=== PATIENT | female | born 1985 | race Caucasian/White ===

== ENCOUNTER 2016-09-15 18:05 | Emergency (ER) | payer MEDICAID ==
[2010-04-02 07:28] VITALS: BMI 22.2
== END 2016-09-15 19:51 | disposition home or self-care (01) ==
LOC: D.ER 18:05
DX: M27.3 Alveolitis of jaws (principal); K08.89 Other specified disorders of teeth and supporting structures

== ENCOUNTER 2016-09-29 20:08 | Emergency (ER) | payer MEDICAID ==
[2010-04-02 07:28] VITALS: BMI 22.2
[2016-09-29 21:06] LABS: BASOPHILS 0.3 % (0-2); EOSINOPHILS 1.3 % (0-7); HEMATOCRIT 38.6 % (36.0-48.0); HEMOGLOBIN 13.4 g/dL (12-16); IMMATURE GRANULOCYTES 0.3 % (0-5); LYMPHOCYTES 46.6 % (15-50); MCH 31.8 pg (26.0-34.0); MCHC 34.7 g/dL (31.0-37.0); MCV 91.5 fL (80.0-100.0); MONOCYTES 5.2 % (2-11); NEUTROPHILS 46.3 % (40-80); PLATELET COUNT 148 10x3/uL (130-400); RBC 4.22 10x6/uL (4.00-5.40); RDW 12.4 % (11.5-14.5); WBC 3.9 10x3/uL (4.8-10.8)
[2016-09-29 21:37] LABS: ALBUMIN 3.8 g/dL (3.4-5.0); ALKALINE PHOSPHATASE 105 U/L (46-116); ALT (SGPT) 27 U/L (10-68); BILIRUBIN - TOTAL 0.27 mg/dL (0.2-1.3); CALC OSMOLALITY 288 mosm/kg (275-300); CALCIUM 8.7 mg/dL (8.5-10.1); CARBON DIOXIDE 26.9 mmol/L (21.0-32.0); CHLORIDE - SERUM 109 mmol/L (98-107); CREATININE - SERUM 0.7 mg/dL (0.6-1.3); GLUCOSE 80 mg/dL (74-106); PHENYTOIN (DILANTIN) 3.6 ug/mL (10.0-20.0); POTASSIUM - SERUM 3.7 mmol/L (3.5-5.1); PROTEIN - SERUM 7.2 g/dL (6.4-8.2); SODIUM 147 mmol/L (136-145); UREA NITROGEN 8 mg/dL (7-18); eGFR NON AFRICAN AMERICAN > 90 mL/min (90-120)
== END 2016-09-29 21:35 | disposition left against medical advice (07) ==
LOC: D.ER 20:08
PROVIDERS: Family Medicine
DX: R56.9 Unspecified convulsions (principal)

== ENCOUNTER 2016-10-24 10:16 | Emergency (ER) | payer MEDICAID ==
[2010-04-02 07:28] VITALS: BMI 22.2
[2016-10-24 11:23] LABS: BASOPHILS 0.2 % (0-2); EOSINOPHILS 1.6 % (0-7); HEMATOCRIT 41.4 % (36.0-48.0); HEMOGLOBIN 14.2 g/dL (12-16); IMMATURE GRANULOCYTES 0.2 % (0-5); LYMPHOCYTES 45.9 % (15-50); MCH 31.3 pg (26.0-34.0); MCHC 34.3 g/dL (31.0-37.0); MCV 91.2 fL (80.0-100.0); MEAN PLATELET VOLUME 11.8 fL (7.4-10.4); MONOCYTES 5.8 % (2-11); NEUTROPHILS 46.3 % (40-80); PLATELET COUNT 154 10x3/uL (130-400); RBC 4.54 10x6/uL (4.00-5.40); RDW 12.4 % (11.5-14.5); WBC 4.5 10x3/uL (4.8-10.8)
[2016-10-24 11:46] LABS: ALBUMIN 3.9 g/dL (3.4-5.0); ALKALINE PHOSPHATASE 71 U/L (46-116); ALT (SGPT) 28 U/L (10-68); BILIRUBIN - TOTAL 0.23 mg/dL (0.2-1.3); CALC OSMOLALITY 276 mosm/kg (275-300); CALCIUM 8.6 mg/dL (8.5-10.1); CARBON DIOXIDE 24.9 mmol/L (21.0-32.0); CHLORIDE - SERUM 105 mmol/L (98-107); CREATININE - SERUM 0.8 mg/dL (0.6-1.3); GLUCOSE 84 mg/dL (74-106); PROTEIN - SERUM 7.7 g/dL (6.4-8.2); SODIUM 139 mmol/L (136-145); UREA NITROGEN 12 mg/dL (7-18); eGFR NON AFRICAN AMERICAN 88 mL/min (90-120)
[2016-10-24 11:47] LABS: PHENYTOIN (DILANTIN) 0.4 ug/mL (10.0-20.0)
== END 2016-10-24 13:11 | disposition left against medical advice (07) ==
LOC: D.ER 10:16
PROVIDERS: Family Medicine
DX: R51 Headache (principal); M54.2 Cervicalgia; M54.6 Pain in thoracic spine; G40.909 Epilepsy, unspecified, not intractable, without status epilepticus; W19.XXXA Unspecified fall, initial encounter; Y93.89 Activity, other specified; Y92.019 Unspecified place in single-family (private) house as the place of occurrence of the external cause; R42 Dizziness and giddiness; F17.200 Nicotine dependence, unspecified, uncomplicated

== ENCOUNTER 2016-11-21 12:27 | Emergency (ER) | payer MEDICAID ==
[2010-04-02 07:28] VITALS: BMI 22.2
[2016-11-21 13:20] LABS: BASOPHILS 0.1 % (0-2); EOSINOPHILS 0.5 % (0-7); HEMATOCRIT 38.3 % (36.0-48.0); HEMOGLOBIN 13.4 g/dL (12-16); IMMATURE GRANULOCYTES 0.1 % (0-5); LYMPHOCYTES 22.5 % (15-50); MCV 91.4 fL (80.0-100.0); MEAN PLATELET VOLUME 11.8 fL (7.4-10.4); MONOCYTES 4.8 % (2-11); PLATELET COUNT 138 10x3/uL (130-400); RBC 4.19 10x6/uL (4.00-5.40); RDW 12.5 % (11.5-14.5); WBC 8.7 10x3/uL (4.8-10.8)
[2016-11-21 13:34] LABS: ALBUMIN 3.7 g/dL (3.4-5.0); ALKALINE PHOSPHATASE 71 U/L (46-116); ALT (SGPT) 29 U/L (10-68); BILIRUBIN - TOTAL 0.31 mg/dL (0.2-1.3); CALC OSMOLALITY 290 mosm/kg (275-300); CALCIUM 8.8 mg/dL (8.5-10.1); CARBON DIOXIDE 30.1 mmol/L (21.0-32.0); CHLORIDE - SERUM 108 mmol/L (98-107); CREATININE - SERUM 0.7 mg/dL (0.6-1.3); GLUCOSE 81 mg/dL (74-106); POTASSIUM - SERUM 3.8 mmol/L (3.5-5.1); PROTEIN - SERUM 6.9 g/dL (6.4-8.2); SODIUM 146 mmol/L (136-145); UREA NITROGEN 14 mg/dL (7-18); eGFR NON AFRICAN AMERICAN > 90 mL/min (90-120)
== END 2016-11-21 13:32 | disposition home or self-care (01) ==
LOC: D.ER 12:27
PROVIDERS: Emergency Medicine
DX: R11.10 Vomiting, unspecified (principal); R19.7 Diarrhea, unspecified; F17.200 Nicotine dependence, unspecified, uncomplicated

== ENCOUNTER → 2016-12-05 11:01 | Outpatient (CLI) | payer MEDICAID | END | disposition home or self-care (01) | LOC: D.CN 11:01 | DX: R56.9 Unspecified convulsions (principal) ==

== ENCOUNTER 2017-01-26 11:34 | Emergency (ER) | payer MEDICAID ==
[2010-04-02 07:28] VITALS: BMI 22.2
== END 2017-01-26 13:04 | disposition home or self-care (01) ==
LOC: D.ER 11:34
DX: G43.909 Migraine, unspecified, not intractable, without status migrainosus (principal); F17.200 Nicotine dependence, unspecified, uncomplicated

== ENCOUNTER 2017-02-23 16:59 | Emergency (ER) | payer MEDICAID ==
[2010-04-02 07:28] VITALS: BMI 22.2
== END 2017-02-23 18:44 | disposition home or self-care (01) ==
LOC: D.ER 16:59
DX: R51 Headache (principal)

== ENCOUNTER 2017-03-22 19:46 | Emergency (ER) | payer MEDICAID ==
[2010-04-02 07:28] VITALS: BMI 22.2
== END 2017-03-22 21:57 | disposition home or self-care (01) ==
LOC: D.ER 19:46
DX: J18.9 Pneumonia, unspecified organism (principal); R51 Headache

== ENCOUNTER 2017-03-23 16:33 | Emergency (ER) | payer MEDICAID ==
[2010-04-02 07:28] VITALS: BMI 22.2
[2017-03-23 19:07] LABS: BASOPHILS 0.1 % (0-2); EOSINOPHILS 0.3 % (0-7); HEMATOCRIT 35.2 % (36.0-48.0); HEMOGLOBIN 12.5 g/dL (12-16); IMMATURE GRANULOCYTES 0.1 % (0-5); LYMPHOCYTES 38.3 % (15-50); MCH 31.7 pg (26.0-34.0); MCHC 35.5 g/dL (31.0-37.0); MCV 89.3 fL (80.0-100.0); MEAN PLATELET VOLUME 11.4 fL (7.4-10.4); MONOCYTES 5.8 % (2-11); NEUTROPHILS 55.4 % (40-80); PLATELET COUNT 152 10x3/uL (130-400); RBC 3.94 10x6/uL (4.00-5.40); RDW 12.3 % (11.5-14.5); WBC 7.4 10x3/uL (4.8-10.8)
[2017-03-23 19:14] LABS: APPEARANCE CLEAR (CLEAR); BILIRUBIN NEGATIVE (NEGATIVE); COLOR DK YELLOW (YELLOW); GLUCOSE NEGATIVE (NEGATIVE); KETONE NEGATIVE (NEGATIVE); NITRITE NEGATIVE (NEGATIVE); PROTEIN NEGATIVE (NEGATIVE); UROBILINOGEN NORMAL (NORMAL)
[2017-03-23 19:15] LABS: UDS - AMPHET NEGATIVE QUAL (NEGATIVE); UDS - BARB POSITIVE QUAL (NEGATIVE); UDS - BENZO POSITIVE QUAL (NEGATIVE); UDS - COCAINE NEGATIVE QUAL (NEGATIVE); UDS - OPIATE NEGATIVE QUAL (NEGATIVE); UDS - PCP NEGATIVE QUAL (NEGATIVE); UDS - THC POSITIVE QUAL (NEGATIVE)
[2017-03-23 19:16] LABS: RED CELLS - URINE 0-5 /hpf (0-5); WHITE CELLS - URINE 0-5 /hpf (0-5)
[2017-03-23 19:17] LABS: BACTERIA FEW /hpf (NONE SEEN)
[2017-03-23 19:22] LABS: ALBUMIN 3.8 g/dL (3.4-5.0); ALKALINE PHOSPHATASE 90 U/L (46-116); ALT (SGPT) 19 U/L (10-68); BILIRUBIN - TOTAL 0.21 mg/dL (0.2-1.3); CALC OSMOLALITY 281 mosm/kg (275-300); CALCIUM 8.7 mg/dL (8.5-10.1); CARBON DIOXIDE 26.5 mmol/L (21.0-32.0); CHLORIDE - SERUM 104 mmol/L (98-107); CREATININE - SERUM 0.8 mg/dL (0.6-1.3); GLUCOSE 90 mg/dL (74-106); PHENYTOIN (DILANTIN) 6.4 ug/mL (10.0-20.0); PROTEIN - SERUM 7.1 g/dL (6.4-8.2); SODIUM 142 mmol/L (136-145); UREA NITROGEN 11 mg/dL (7-18); eGFR NON AFRICAN AMERICAN 88 mL/min (90-120)
== END 2017-03-23 20:58 | disposition home or self-care (01) ==
LOC: D.ER 16:33
PROVIDERS: Nurse Practitioner Family
DX: Z91.14 Patient's other noncompliance with medication regimen (principal); G40.909 Epilepsy, unspecified, not intractable, without status epilepticus; F19.10 Other psychoactive substance abuse, uncomplicated

== ENCOUNTER 2017-03-26 03:22 | Emergency (ER) | payer MEDICAID ==
[2010-04-02 07:28] VITALS: BMI 22.2
== END 2017-03-26 04:46 | disposition home or self-care (01) ==
LOC: D.ER 03:22
DX: S10.93XA Contusion of unspecified part of neck, initial encounter (principal); S60.212A Contusion of left wrist, initial encounter; S60.211A Contusion of right wrist, initial encounter; Y04.2XXA Assault by strike against or bumped into by another person, initial encounter; Y93.89 Activity, other specified; Y92.019 Unspecified place in single-family (private) house as the place of occurrence of the external cause

== ENCOUNTER 2017-04-22 19:13 | Emergency (ER) | payer MEDICAID ==
[2010-04-02 07:28] VITALS: BMI 22.2
== END 2017-04-22 20:48 | disposition home or self-care (01) ==
LOC: D.ER 19:13
DX: K08.89 Other specified disorders of teeth and supporting structures (principal); F17.200 Nicotine dependence, unspecified, uncomplicated

== ENCOUNTER 2017-04-23 10:32 | Emergency (ER) | payer MEDICAID ==
[2010-04-02 07:28] VITALS: BMI 22.2
== END 2017-04-23 12:10 | disposition home or self-care (01) ==
LOC: D.ER 10:32
DX: K04.7 Periapical abscess without sinus (principal); K08.89 Other specified disorders of teeth and supporting structures; F17.200 Nicotine dependence, unspecified, uncomplicated

== ENCOUNTER 2017-04-25 16:19 | Emergency (ER) | payer MEDICAID ==
[2010-04-02 07:28] VITALS: BMI 22.2
[2017-04-25 18:49] LABS: BASOPHILS 0 % (0-2); EOSINOPHILS 2.2 % (0-7); HEMATOCRIT 39.8 % (36.0-48.0); HEMOGLOBIN 13.5 g/dL (12-16); LYMPHOCYTES 43.5 % (15-50); MCH 30.8 pg (26.0-34.0); MCHC 33.9 g/dL (31.0-37.0); MCV 90.9 fL (80.0-100.0); MEAN PLATELET VOLUME 11.2 fL (7.4-10.4); MONOCYTES 6.5 % (2-11); NEUTROPHILS 47.8 % (40-80); PLATELET COUNT 144 10x3/uL (130-400); RBC 4.38 10x6/uL (4.00-5.40); RDW 12.2 % (11.5-14.5); WBC 3.7 10x3/uL (4.8-10.8)
[2017-04-25 19:48] LABS: ALKALINE PHOSPHATASE 169 U/L (46-116); ALT (SGPT) 98 U/L (10-68); BILIRUBIN - TOTAL 0.23 mg/dL (0.2-1.3); CALC OSMOLALITY 282 mosm/kg (275-300); CALCIUM 8.5 mg/dL (8.5-10.1); CARBON DIOXIDE 26.6 mmol/L (21.0-32.0); CHLORIDE - SERUM 107 mmol/L (98-107); CREATININE - SERUM 0.7 mg/dL (0.6-1.3); GLUCOSE 78 mg/dL (74-106); POTASSIUM - SERUM 4.4 mmol/L (3.5-5.1); PROTEIN - SERUM 7.2 g/dL (6.4-8.2); SODIUM 142 mmol/L (136-145); UREA NITROGEN 14 mg/dL (7-18); eGFR NON AFRICAN AMERICAN > 90 mL/min (90-120)
[2017-04-25 19:59] LABS: TROPONIN-I < 0.017 ng/mL (0.000-0.060)
== END 2017-04-25 20:20 | disposition home or self-care (01) ==
LOC: D.ER 16:19
PROVIDERS: Nurse Practitioner Family
DX: K04.7 Periapical abscess without sinus (principal); K08.89 Other specified disorders of teeth and supporting structures; F17.200 Nicotine dependence, unspecified, uncomplicated

== ENCOUNTER 2017-05-19 20:00 | Emergency (ER) | payer MEDICAID ==
[2010-04-02 07:28] VITALS: BMI 22.2
== END 2017-05-19 21:30 | disposition home or self-care (01) ==
LOC: D.ER 20:00
DX: K08.89 Other specified disorders of teeth and supporting structures (principal)

== ENCOUNTER 2017-05-24 22:10 | Emergency (ER) | payer MEDICAID ==
[2010-04-02 07:28] VITALS: BMI 22.2
== END 2017-05-25 00:04 | disposition home or self-care (01) ==
LOC: D.ER 22:10
DX: K08.89 Other specified disorders of teeth and supporting structures (principal); Z98.890 Other specified postprocedural states

== ENCOUNTER 2017-05-27 09:35 | Emergency (ER) | payer MEDICAID ==
[2010-04-02 07:28] VITALS: BMI 22.2
== END 2017-05-27 12:10 | disposition home or self-care (01) ==
LOC: D.ER 09:35
DX: K08.109 Complete loss of teeth, unspecified cause, unspecified class (principal); K08.89 Other specified disorders of teeth and supporting structures; B37.9 Candidiasis, unspecified

== ENCOUNTER 2017-06-23 21:24 | Emergency (ER) | payer MEDICAID ==
[2010-04-02 07:28] VITALS: BMI 22.2
== END 2017-06-24 00:15 | disposition home or self-care (01) ==
LOC: D.ER 21:24
DX: G43.909 Migraine, unspecified, not intractable, without status migrainosus (principal)

== ENCOUNTER 2017-06-24 16:42 | Emergency (ER) | payer MEDICAID ==
[2010-04-02 07:28] VITALS: BMI 22.2
== END 2017-06-24 19:47 | disposition home or self-care (01) ==
LOC: D.ER 16:42
DX: S16.1XXA Strain of muscle, fascia and tendon at neck level, initial encounter (principal); Y04.2XXA Assault by strike against or bumped into by another person, initial encounter; Y93.89 Activity, other specified; Y92.019 Unspecified place in single-family (private) house as the place of occurrence of the external cause; M54.12 Radiculopathy, cervical region; R51 Headache; F17.200 Nicotine dependence, unspecified, uncomplicated

== ENCOUNTER 2017-06-27 15:44 | Emergency (ER) | payer MEDICAID ==
[2010-04-02 07:28] VITALS: BMI 22.2
== END 2017-06-27 18:05 | disposition home or self-care (01) ==
LOC: D.ER 15:44
DX: G43.909 Migraine, unspecified, not intractable, without status migrainosus (principal)

== ENCOUNTER 2017-07-18 13:18 | Emergency (ER) | payer MEDICAID ==
[2010-04-02 07:28] VITALS: BMI 22.2
== END 2017-07-18 15:35 | disposition home or self-care (01) ==
LOC: D.ER 13:18
DX: M25.561 Pain in right knee (principal); M25.461 Effusion, right knee; G89.29 Other chronic pain

== ENCOUNTER 2017-07-22 15:47 | Emergency (ER) | payer MEDICAID ==
[2010-04-02 07:28] VITALS: BMI 22.2
== END 2017-07-22 19:00 | disposition home or self-care (01) ==
LOC: D.ER 15:47
DX: S83.91XA Sprain of unspecified site of right knee, initial encounter (principal); W19.XXXA Unspecified fall, initial encounter; Y93.89 Activity, other specified; Y92.019 Unspecified place in single-family (private) house as the place of occurrence of the external cause; F17.200 Nicotine dependence, unspecified, uncomplicated

== ENCOUNTER 2017-09-11 16:59 | Emergency (ER) | payer MEDICAID ==
[~2017-09-11] VITALS: Ht 149.9 cm; Wt 54.5 kg
[2017-09-11 17:31] VITALS: BP 132/67; Ht 149.9 cm; Wt 54.5 kg
== END 2017-09-11 19:00 | disposition left against medical advice (07) ==
LOC: D.ER 16:59
DX: R51 Headache (principal)

== ENCOUNTER 2017-09-16 20:30 | Emergency (ER) | payer MEDICAID ==
[~2017-09-16] VITALS: Ht 149.9 cm; Wt 54.4 kg
[2017-09-16 20:47] VITALS: Ht 149.9 cm; Wt 54.4 kg
[2017-09-16] MEDS ORDERED: TALWIN NX1 TAB PO (22:01)
[2017-09-16 22:06] VITALS: BP 114/75
== END 2017-09-16 22:12 | disposition home or self-care (01) ==
LOC: D.ER 20:30
DX: G43.909 Migraine, unspecified, not intractable, without status migrainosus (principal); F17.200 Nicotine dependence, unspecified, uncomplicated

== ENCOUNTER 2017-10-12 10:03 | Emergency (ER) | payer MEDICAID ==
[~2017-10-12] VITALS: Ht 149.9 cm; Wt 52.3 kg
[~2017-10-12 10:03] MED LIST: TALWIN NX1 TAB PO
[2017-10-12 10:10] VITALS: Ht 149.9 cm; Wt 52.3 kg
[2017-10-12] MEDS ORDERED: BUTALB-APAP-CA1 EACH PO (10:35)
[2017-10-12 11:29] VITALS: BP 114/68
[2017-10-13] MEDS ORDERED: PHENYTOIN100 MG/4 M PO (01:10)
== END 2017-10-12 11:30 | disposition home or self-care (01) ==
LOC: D.ER 10:03
DX: G43.909 Migraine, unspecified, not intractable, without status migrainosus (principal)

== ENCOUNTER 2017-10-12 16:49 | Emergency (ER) | payer MEDICAID ==
[~2017-10-12] VITALS: Ht 149.9 cm; Wt 52.3 kg
[~2017-10-12 16:49] MED LIST changes: +BUTALB-APAP-CA1 EACH PO
[2017-10-12 16:54] VITALS: Ht 149.9 cm; Wt 52.3 kg
[2017-10-12 18:49] VITALS: BP 112/74
[2017-10-13] MEDS ORDERED: PHENYTOIN100 MG/4 M PO (01:10)
== END 2017-10-12 18:51 | disposition home or self-care (01) ==
LOC: D.ER 16:49
DX: G43.909 Migraine, unspecified, not intractable, without status migrainosus (principal); Z76.5 Malingerer [conscious simulation]; G40.909 Epilepsy, unspecified, not intractable, without status epilepticus; F17.200 Nicotine dependence, unspecified, uncomplicated

== ENCOUNTER 2017-10-13 01:04 | Emergency (ER) | payer MEDICAID ==
[~2017-10-13] VITALS: Ht 149.9 cm; Wt 52.3 kg
[2017-10-13 01:07] VITALS: Ht 149.9 cm; Wt 52.3 kg
[2017-10-13] MEDS ORDERED: PHENYTOIN100 MG/4 M PO (01:10)
[2017-10-13 02:06] LABS: BASOPHILS 0 % (0-2); EOSINOPHILS 0 % (0-7); HEMATOCRIT 40.7 % (36.0-48.0); HEMOGLOBIN 14.2 g/dL (12-16); LYMPHOCYTES 22.5 % (15-50); MCH 30.7 pg (26.0-34.0); MCHC 34.9 g/dL (31.0-37.0); MCV 87.9 fL (80.0-100.0); MEAN PLATELET VOLUME 12.3 fL (7.4-10.4); MONOCYTES 2.3 % (2-11); NEUTROPHILS 75.2 % (40-80); PLATELET COUNT 149 10x3/uL (130-400); RBC 4.63 10x6/uL (4.00-5.40); RDW 12.5 % (11.5-14.5); WBC 4.4 10x3/uL (4.8-10.8)
[2017-10-13 02:14] LABS: ALBUMIN 3.9 g/dL (3.4-5.0); ALKALINE PHOSPHATASE 73 U/L (46-116); ALT (SGPT) 37 U/L (10-68); BILIRUBIN - TOTAL 0.59 mg/dL (0.2-1.3); C-REACTIVE PROTEIN 0.8 mg/dL (0.0-0.9); CALC OSMOLALITY 275 mosm/kg (275-300); CALCIUM 8.8 mg/dL (8.5-10.1); CARBON DIOXIDE 23.9 mmol/L (21.0-32.0); CHLORIDE - SERUM 106 mmol/L (98-107); CREATININE - SERUM 0.7 mg/dL (0.6-1.3); GLUCOSE 116 mg/dL (74-106); MAGNESIUM - SERUM 2.3 mg/dL (1.8-2.4); PROTEIN - SERUM 7.6 g/dL (6.4-8.2); SODIUM 138 mmol/L (136-145); UREA NITROGEN 11 mg/dL (7-18); eGFR NON AFRICAN AMERICAN > 90 mL/min (90-120)
[2017-10-13 02:31] LABS: APPEARANCE CLEAR (CLEAR); BILIRUBIN NEGATIVE (NEGATIVE); COLOR YELLOW (YELLOW); GLUCOSE NEGATIVE (NEGATIVE); KETONE NEGATIVE (NEGATIVE); NITRITE NEGATIVE (NEGATIVE); PROTEIN NEGATIVE (NEGATIVE); UROBILINOGEN NORMAL (NORMAL)
[2017-10-13 03:08] LABS: ERYTHROCYTE SEDIMENTATION RATE 8 mm/hr (0-20)
[2017-10-13 04:05] VITALS: BP 103/60
== END 2017-10-13 04:05 | disposition home or self-care (01) ==
LOC: D.ER 01:04
PROVIDERS: Emergency Medicine
DX: G81.94 Hemiplegia, unspecified affecting left nondominant side (principal); G81.91 Hemiplegia, unspecified affecting right dominant side; R51 Headache; G40.909 Epilepsy, unspecified, not intractable, without status epilepticus; F17.200 Nicotine dependence, unspecified, uncomplicated

== ENCOUNTER 2017-10-15 16:59 | Emergency (ER) | payer MEDICAID ==
[~2017-10-15] VITALS: Ht 149.9 cm; Wt 58.2 kg
[~2017-10-15 16:59] MED LIST changes: +PHENYTOIN100 MG/4 M PO
[2017-10-15 17:11] VITALS: Ht 149.9 cm; Wt 58.2 kg
[2017-10-15] MEDS ORDERED: CLONAZEPAM1 MG/TAB (17:13)
[2017-10-15] MEDS ORDERED: AMBIEN5 MG PO (17:13)
[2017-10-15] MEDS ORDERED: PREDNISONE20 MG PO (21:01)
[2017-10-15 21:09] VITALS: BP 123/67
== END 2017-10-15 21:09 | disposition home or self-care (01) ==
LOC: D.ER 16:59
DX: S69.91XA Unspecified injury of right wrist, hand and finger(s), initial encounter (principal); W22.01XA Walked into wall, initial encounter; Y93.89 Activity, other specified; Y92.019 Unspecified place in single-family (private) house as the place of occurrence of the external cause; M79.641 Pain in right hand; F17.200 Nicotine dependence, unspecified, uncomplicated

== ENCOUNTER 2017-12-13 15:37 | Emergency (ER) | payer MEDICAID ==
[~2017-12-13] VITALS: Ht 149.9 cm; Wt 52.3 kg
[~2017-12-13 15:37] MED LIST changes: +AMBIEN5 MG PO; +CLONAZEPAM1 MG/TAB; +PREDNISONE20 MG PO
[2017-12-13 15:42] VITALS: Ht 149.9 cm; Wt 52.3 kg
[2017-12-13 16:31] LABS: BASOPHILS 0.2 % (0-2); EOSINOPHILS 0.6 % (0-7); HEMATOCRIT 37.9 % (36.0-48.0); IMMATURE GRANULOCYTES 0.2 % (0-5); LYMPHOCYTES 33.3 % (15-50); MCHC 34.3 g/dL (31.0-37.0); MCV 87.5 fL (80.0-100.0); MEAN PLATELET VOLUME 11.9 fL (7.4-10.4); MONOCYTES 6.6 % (2-11); NEUTROPHILS 59.1 % (40-80); PLATELET COUNT 161 10x3/uL (130-400); RBC 4.33 10x6/uL (4.00-5.40); RDW 12.5 % (11.5-14.5); WBC 5.2 10x3/uL (4.8-10.8)
[2017-12-13 16:45] LABS: APPEARANCE CLEAR (CLEAR); BILIRUBIN NEGATIVE (NEGATIVE); COLOR YELLOW (YELLOW); GLUCOSE NEGATIVE (NEGATIVE); KETONE MODERATE mg/dL (NEGATIVE); NITRITE NEGATIVE (NEGATIVE); PROTEIN NEGATIVE (NEGATIVE); SPECIFIC GRAVITY 1.025 (1.005-1.020); UROBILINOGEN NORMAL (NORMAL)
[2017-12-13 16:53] LABS: ALKALINE PHOSPHATASE 73 U/L (46-116); ALT (SGPT) 30 U/L (10-68); BILIRUBIN - TOTAL 0.53 mg/dL (0.2-1.3); CALC OSMOLALITY 279 mosm/kg (275-300); CALCIUM 8.6 mg/dL (8.5-10.1); CARBON DIOXIDE 22.5 mmol/L (21.0-32.0); CHLORIDE - SERUM 106 mmol/L (98-107); CREATININE - SERUM 0.7 mg/dL (0.6-1.3); GLUCOSE 86 mg/dL (74-106); POTASSIUM - SERUM 3.7 mmol/L (3.5-5.1); PROTEIN - SERUM 7.6 g/dL (6.4-8.2); SODIUM 141 mmol/L (136-145); UREA NITROGEN 13 mg/dL (7-18); eGFR NON AFRICAN AMERICAN > 90 mL/min (90-120)
[2017-12-13 16:59] LABS: UDS - AMPHET NEGATIVE QUAL (NEGATIVE); UDS - BARB NEGATIVE QUAL (NEGATIVE); UDS - BENZO POSITIVE QUAL (NEGATIVE); UDS - COCAINE NEGATIVE QUAL (NEGATIVE); UDS - OPIATE NEGATIVE QUAL (NEGATIVE); UDS - PCP NEGATIVE QUAL (NEGATIVE); UDS - THC POSITIVE QUAL (NEGATIVE)
[2017-12-13 17:03] LABS: PHENYTOIN (DILANTIN) 0.6 ug/mL (10.0-20.0)
[2017-12-13] MEDS ORDERED: FIORICET/ESGIC1 TAB PO (18:50)
[2017-12-13 19:10] VITALS: BP 102/69
== END 2017-12-13 19:11 | disposition home or self-care (01) ==
LOC: D.ER 15:37
PROVIDERS: Emergency Medicine
DX: Z91.14 Patient's other noncompliance with medication regimen (principal); S05.11XA Contusion of eyeball and orbital tissues, right eye, initial encounter; X58.XXXA Exposure to other specified factors, initial encounter; Y93.89 Activity, other specified; Y92.019 Unspecified place in single-family (private) house as the place of occurrence of the external cause; G40.909 Epilepsy, unspecified, not intractable, without status epilepticus; F17.200 Nicotine dependence, unspecified, uncomplicated

== ENCOUNTER 2017-12-15 07:07 | Emergency (ER) | payer MEDICAID ==
[~2017-12-15] VITALS: Ht 149.9 cm; Wt 52.3 kg
[~2017-12-15 07:07] MED LIST changes: +FIORICET/ESGIC1 TAB PO
[2017-12-15 07:08] VITALS: BP 127/78; Ht 149.9 cm; Wt 52.3 kg
== END 2017-12-15 09:25 | disposition home or self-care (01) ==
LOC: D.ER 07:07
DX: R07.89 Other chest pain (principal); M94.0 Chondrocostal junction syndrome [Tietze]; G40.909 Epilepsy, unspecified, not intractable, without status epilepticus; F17.200 Nicotine dependence, unspecified, uncomplicated

== ENCOUNTER 2018-03-12 00:55 | Emergency (ER) | payer MEDICAID ==
[~2018-03-12] VITALS: Ht 149.9 cm; Wt 45.5 kg
[2018-03-12 00:58] VITALS: Ht 149.9 cm; Wt 45.5 kg
[2018-03-12] MEDS ORDERED: BUTALB-APAP-CA1 EACH PO (02:44)
[2018-03-12 03:03] VITALS: BP 108/75
== END 2018-03-12 03:03 | disposition home or self-care (01) ==
LOC: D.ER 00:55
DX: G43.909 Migraine, unspecified, not intractable, without status migrainosus (principal); G40.909 Epilepsy, unspecified, not intractable, without status epilepticus; F17.200 Nicotine dependence, unspecified, uncomplicated

== ENCOUNTER 2018-04-15 11:16 | Emergency (ER) | payer MEDICAID ==
[~2018-04-15] VITALS: Ht 149.9 cm; Wt 52.3 kg
[2018-04-15 11:32] VITALS: Ht 149.9 cm; Wt 52.3 kg
[2018-04-15 11:49] LABS: BASOPHILS 0.1 % (0-2); EOSINOPHILS 0.2 % (0-7); HEMATOCRIT 43.1 % (36.0-48.0); IMMATURE GRANULOCYTES 0.1 % (0-5); LYMPHOCYTES 18.4 % (15-50); MCH 30.2 pg (26.0-34.0); MCHC 34.8 g/dL (31.0-37.0); MCV 86.9 fL (80.0-100.0); MEAN PLATELET VOLUME 11.6 fL (7.4-10.4); MONOCYTES 5.6 % (2-11); NEUTROPHILS 75.6 % (40-80); PLATELET COUNT 129 10x3/uL (130-400); RBC 4.96 10x6/uL (4.00-5.40); RDW 13.7 % (11.5-14.5); WBC 9.6 10x3/uL (4.8-10.8)
[2018-04-15 12:07] LABS: APPEARANCE CLOUDY (CLEAR); BILIRUBIN NEGATIVE (NEGATIVE); COLOR YELLOW (YELLOW); GLUCOSE NEGATIVE (NEGATIVE); KETONE NEGATIVE (NEGATIVE); NITRITE NEGATIVE (NEGATIVE); PROTEIN TRACE mg/dL (NEGATIVE); UROBILINOGEN NORMAL (NORMAL)
[2018-04-15 12:08] LABS: BILIRUBIN - TOTAL 0.81 mg/dL (0.2-1.3); CALCIUM 9.2 mg/dL (8.5-10.1); CARBON DIOXIDE 23.5 mmol/L (21.0-32.0); POTASSIUM - SERUM 3.5 mmol/L (3.5-5.1); PROTEIN - SERUM 8.4 g/dL (6.4-8.2)
[2018-04-15 12:09] LABS: BACTERIA FEW /hpf (NONE SEEN); EPITHELIAL CELLS 0-5 /hpf (0-5); MUCUS <1+ /lpf (NONE SEEN); RED CELLS - URINE 0-5 /hpf (0-5)
[2018-04-15] MEDS ORDERED: CIPRO500 MG PO (16:08)
[2018-04-15 16:21] VITALS: BP 124/76
== END 2018-04-15 16:23 | disposition home or self-care (01) ==
LOC: D.ER 11:16
PROVIDERS: Family Medicine
DX: N39.0 Urinary tract infection, site not specified (principal); N20.0 Calculus of kidney; G40.909 Epilepsy, unspecified, not intractable, without status epilepticus; R30.0 Dysuria; F17.200 Nicotine dependence, unspecified, uncomplicated

== ENCOUNTER 2018-06-02 19:03 | Emergency (ER) | payer OTHER ==
[~2018-06-02] VITALS: Ht 149.9 cm; Wt 50.5 kg
[~2018-06-02 19:03] MED LIST changes: +CIPRO500 MG PO
[2018-06-02 19:08] VITALS: Ht 149.9 cm; Wt 50.5 kg
[2018-06-02 19:45] LABS: BASOPHILS 0.2 % (0-2); EOSINOPHILS 0.7 % (0-7); HEMATOCRIT 42.5 % (36.0-48.0); HEMOGLOBIN 14.6 g/dL (12-16); LYMPHOCYTES 48.6 % (15-50); MCH 30.4 pg (26.0-34.0); MCHC 34.4 g/dL (31.0-37.0); MCV 88.5 fL (80.0-100.0); MEAN PLATELET VOLUME 12.2 fL (7.4-10.4); MONOCYTES 5.7 % (2-11); NEUTROPHILS 44.8 % (40-80); PLATELET COUNT 150 10x3/uL (130-400); RDW 13.3 % (11.5-14.5)
[2018-06-02 19:54] LABS: ALBUMIN 4.3 g/dL (3.4-5.0); ANION GAP 14.5 mmol/L (8-16); BILIRUBIN - TOTAL 1.08 mg/dL (0.2-1.3); CARBON DIOXIDE 25.3 mmol/L (21.0-32.0); MAGNESIUM - SERUM 2.3 mg/dL (1.8-2.4); POTASSIUM - SERUM 3.8 mmol/L (3.5-5.1); PROTEIN - SERUM 8.3 g/dL (6.4-8.2)
[2018-06-02 20:40] LABS: APPEARANCE CLEAR (CLEAR); BILIRUBIN NEGATIVE (NEGATIVE); COLOR YELLOW (YELLOW); GLUCOSE NEGATIVE (NEGATIVE); KETONE MODERATE mg/dL (NEGATIVE); NITRITE NEGATIVE (NEGATIVE); PROTEIN NEGATIVE (NEGATIVE); UROBILINOGEN NORMAL (NORMAL)
[2018-06-02 20:44] LABS: RED CELLS - URINE 0-5 /hpf (0-5)
[2018-06-02 20:45] LABS: BACTERIA FEW /hpf (NONE SEEN); EPITHELIAL CELLS 0-5 /hpf (0-5); MUCUS >1+ /lpf (NONE SEEN)
[2018-06-02 20:53] LABS: UDS - AMPHET NEGATIVE QUAL (NEGATIVE); UDS - BARB NEGATIVE QUAL (NEGATIVE); UDS - BENZO POSITIVE QUAL (NEGATIVE); UDS - COCAINE NEGATIVE QUAL (NEGATIVE); UDS - OPIATE NEGATIVE QUAL (NEGATIVE); UDS - PCP NEGATIVE QUAL (NEGATIVE); UDS - THC POSITIVE QUAL (NEGATIVE)
[2018-06-02 22:05] VITALS: BP 127/79
== END 2018-06-02 22:05 | disposition home or self-care (01) ==
LOC: D.ER 19:03
PROVIDERS: Family Medicine
DX: G40.909 Epilepsy, unspecified, not intractable, without status epilepticus (principal); M54.2 Cervicalgia; S09.90XA Unspecified injury of head, initial encounter; W18.30XA Fall on same level, unspecified, initial encounter; Y93.89 Activity, other specified; Y92.019 Unspecified place in single-family (private) house as the place of occurrence of the external cause

== ENCOUNTER 2018-06-03 18:55 | Emergency (ER) | payer OTHER ==
[~2018-06-03] VITALS: Ht 149.9 cm; Wt 49.1 kg
[2018-06-03 18:57] VITALS: Ht 149.9 cm; Wt 49.1 kg
[2018-06-03 21:45] VITALS: BP 115/85
== END 2018-06-03 21:45 | disposition left against medical advice (07) ==
LOC: D.ER 18:55
DX: G40.909 Epilepsy, unspecified, not intractable, without status epilepticus (principal); R51 Headache

== ENCOUNTER 2018-07-21 03:53 | Emergency (ER) | payer OTHER ==
[~2018-07-21] VITALS: Ht 149.9 cm; Wt 47.7 kg
[2018-07-21 03:56] VITALS: Ht 149.9 cm; Wt 47.7 kg
[2018-07-21] MEDS ORDERED: TALWIN NX1 TAB PO (04:33)
[2018-07-21 05:03] VITALS: BP 107/68
== END 2018-07-21 05:05 | disposition home or self-care (01) ==
LOC: D.ER 03:53
DX: S83.92XA Sprain of unspecified site of left knee, initial encounter (principal); Y93.67 Activity, basketball; Y92.89 Other specified places as the place of occurrence of the external cause

== ENCOUNTER 2018-09-07 17:56 | Emergency (ER) | payer OTHER ==
[~2018-09-07] VITALS: Ht 149.9 cm; Wt 47.7 kg
[2018-09-07 17:59] VITALS: Ht 149.9 cm; Wt 47.7 kg
[2018-09-07] MEDS ORDERED: KLONOPIN1 MG PO (18:03)
[2018-09-07] MEDS ORDERED: KEPPRA250 MG PO (18:04)
[2018-09-07 18:55] LABS: BASOPHILS 0.1 % (0-2); EOSINOPHILS 0 % (0-7); HEMATOCRIT 40.1 % (36.0-48.0); HEMOGLOBIN 14.1 g/dL (12-16); IMMATURE GRANULOCYTES 0.2 % (0-5); LYMPHOCYTES 8.9 % (15-50); MCH 30.5 pg (26.0-34.0); MCHC 35.2 g/dL (31.0-37.0); MCV 86.8 fL (80.0-100.0); MONOCYTES 6.8 % (2-11); PLATELET COUNT 145 10x3/uL (130-400); RBC 4.62 10x6/uL (4.00-5.40); RDW 12.8 % (11.5-14.5); WBC 13.2 10x3/uL (4.8-10.8)
[2018-09-07 19:04] LABS: APPEARANCE CLOUDY (CLEAR); COLOR YELLOW (YELLOW); GLUCOSE NEGATIVE (NEGATIVE); NITRITE POSITIVE (NEGATIVE); PROTEIN 2+ mg/dL (NEGATIVE)
[2018-09-07 19:05] LABS: BILIRUBIN NEGATIVE (NEGATIVE); KETONE MODERATE mg/dL (NEGATIVE); UROBILINOGEN NORMAL (NORMAL)
[2018-09-07 19:06] LABS: BACTERIA MODERATE /hpf (NONE SEEN); EPITHELIAL CELLS 0-5 /hpf (0-5); MUCUS <1+ /lpf (NONE SEEN); RED CELLS - URINE 0-5 /hpf (0-5); WHITE CELLS - URINE >50 /hpf (0-5)
[2018-09-07 19:16] LABS: HCG SERUM NEGATIVE (NEGATIVE)
[2018-09-07 19:20] LABS: ALKALINE PHOSPHATASE 74 U/L (46-116); ALT (SGPT) 19 U/L (10-68); BILIRUBIN - TOTAL 1.51 mg/dL (0.2-1.3); CALC OSMOLALITY 264 mosm/kg (275-300); CALCIUM 9.4 mg/dL (8.5-10.1); CARBON DIOXIDE 20.8 mmol/L (21.0-32.0); CHLORIDE - SERUM 98 mmol/L (98-107); CREATININE - SERUM 0.7 mg/dL (0.6-1.3); GLUCOSE 103 mg/dL (74-106); POTASSIUM - SERUM 3.7 mmol/L (3.5-5.1); PROTEIN - SERUM 8.4 g/dL (6.4-8.2); SODIUM 133 mmol/L (136-145); UREA NITROGEN 11 mg/dL (7-18); eGFR NON AFRICAN AMERICAN > 90 mL/min (90-120)
[2018-09-07] MEDS ORDERED: MACROBID100 MG PO (20:18)
[2018-09-07] MEDS ORDERED: ONDANSETRON8 MG/TAB PO (20:19)
[2018-09-07 22:19] VITALS: BP 118/88
== END 2018-09-07 22:20 | disposition home or self-care (01) ==
LOC: D.ER 17:56
PROVIDERS: Family Medicine
DX: R10.9 Unspecified abdominal pain (principal); N12 Tubulo-interstitial nephritis, not specified as acute or chronic

== ENCOUNTER 2018-09-11 22:55 | Emergency (ER) | payer OTHER ==
[~2018-09-11] VITALS: Ht 149.9 cm; Wt 47.7 kg
[~2018-09-11 22:55] MED LIST changes: +KEPPRA250 MG PO; +KLONOPIN1 MG PO; +MACROBID100 MG PO; +ONDANSETRON8 MG/TAB PO
[2018-09-11 23:02] VITALS: BP 139/65; Ht 149.9 cm; Wt 47.7 kg
[2018-09-11 23:42] LABS: HEMATOCRIT 36.9 % (36.0-48.0); HEMOGLOBIN 13.1 g/dL (12-16); MCH 31.1 pg (26.0-34.0); MCHC 35.5 g/dL (31.0-37.0); MCV 87.6 fL (80.0-100.0); MEAN PLATELET VOLUME 11.3 fL (7.4-10.4); PLATELET COUNT 171 10x3/uL (130-400); RBC 4.21 10x6/uL (4.00-5.40); RDW 12.6 % (11.5-14.5); WBC 4.3 10x3/uL (4.8-10.8)
[2018-09-11 23:51] LABS: ALBUMIN 3.4 g/dL (3.4-5.0); ALKALINE PHOSPHATASE 116 U/L (46-116); ALT (SGPT) 34 U/L (10-68); CALC OSMOLALITY 278 mosm/kg (275-300); CALCIUM 8.9 mg/dL (8.5-10.1); CARBON DIOXIDE 28.1 mmol/L (21.0-32.0); CHLORIDE - SERUM 103 mmol/L (98-107); CREATININE - SERUM 0.8 mg/dL (0.6-1.3); GLUCOSE 88 mg/dL (74-106); PROTEIN - SERUM 7.7 g/dL (6.4-8.2); SODIUM 139 mmol/L (136-145); UREA NITROGEN 17 mg/dL (7-18); eGFR NON AFRICAN AMERICAN 87 mL/min (90-120)
[2018-09-11 23:52] LABS: APPEARANCE CLEAR (CLEAR); BILIRUBIN NEGATIVE (NEGATIVE); COLOR YELLOW (YELLOW); GLUCOSE NEGATIVE (NEGATIVE); KETONE NEGATIVE (NEGATIVE); NITRITE NEGATIVE (NEGATIVE); PROTEIN NEGATIVE (NEGATIVE); SPECIFIC GRAVITY 1.015 (1.005-1.020); UROBILINOGEN NORMAL (NORMAL)
[2018-09-11 23:54] LABS: BACTERIA MODERATE /hpf (NONE SEEN); EPITHELIAL CELLS 0-5 /hpf (0-5); MUCUS <1+ /lpf (NONE SEEN); RED CELLS - URINE 0-5 /hpf (0-5); WHITE CELLS - URINE 0-5 /hpf (0-5)
[2018-09-11 23:55] LABS: AMYLASE - SERUM 55 U/L (25-115); LIPASE 141 U/L (73-393); TROPONIN-I < 0.017 ng/mL (0.000-0.060)
[2018-09-12 00:05] LABS: EOSINOPHILS 1 % (0-7); LYMPHOCYTES 59 % (15-50); MONOCYTES 2 % (2-11); NEUTROPHILS 35 % (40-80); PLATELET ESTIMATE DECREASED
== END 2018-09-12 00:36 | disposition left against medical advice (07) ==
LOC: D.ER 22:55
PROVIDERS: Family Medicine
DX: R10.9 Unspecified abdominal pain (principal); F17.210 Nicotine dependence, cigarettes, uncomplicated

== ENCOUNTER 2018-09-12 18:19 | Emergency (ER) | payer OTHER ==
[~2018-09-12] VITALS: Ht 149.9 cm; Wt 47.6 kg
[2018-09-12 18:21] VITALS: Ht 149.9 cm; Wt 47.6 kg
[2018-09-12 19:20] LABS: UDS - AMPHET NEGATIVE QUAL (NEGATIVE); UDS - BARB NEGATIVE QUAL (NEGATIVE); UDS - BENZO POSITIVE QUAL (NEGATIVE); UDS - COCAINE NEGATIVE QUAL (NEGATIVE); UDS - OPIATE NEGATIVE QUAL (NEGATIVE); UDS - PCP NEGATIVE QUAL (NEGATIVE); UDS - THC POSITIVE QUAL (NEGATIVE)
[2018-09-12 19:31] LABS: APPEARANCE CLEAR (CLEAR); BILIRUBIN NEGATIVE (NEGATIVE); COLOR YELLOW (YELLOW); GLUCOSE NEGATIVE (NEGATIVE); KETONE NEGATIVE (NEGATIVE); NITRITE NEGATIVE (NEGATIVE); PROTEIN NEGATIVE (NEGATIVE); UROBILINOGEN NORMAL (NORMAL)
[2018-09-12 20:00] VITALS: BP 111/73
== END 2018-09-12 20:00 | disposition home or self-care (01) ==
LOC: D.ER 18:19
PROVIDERS: Family Medicine
DX: R10.9 Unspecified abdominal pain (principal); F17.210 Nicotine dependence, cigarettes, uncomplicated

== ENCOUNTER 2018-10-10 16:52 | Emergency (ER) | payer OTHER ==
[~2018-10-10] VITALS: Ht 149.9 cm; Wt 50.0 kg
[2018-10-10 17:00] VITALS: Ht 149.9 cm; Wt 50.0 kg
[2018-10-10] MEDS ORDERED: ZANAFLEX4 MG PO (17:05)
[2018-10-10] MEDS ORDERED: ALBUTEROL SULF8.5 GM INH (17:05)
[2018-10-10 17:34] LABS: BASOPHILS 0.4 % (0-2); EOSINOPHILS 1.1 % (0-7); HEMATOCRIT 39.9 % (36.0-48.0); HEMOGLOBIN 14.3 g/dL (12-16); IMMATURE GRANULOCYTES 0.2 % (0-5); LYMPHOCYTES 36.6 % (15-50); MCH 30.9 pg (26.0-34.0); MCHC 35.8 g/dL (31.0-37.0); MCV 86.2 fL (80.0-100.0); MEAN PLATELET VOLUME 11.7 fL (7.4-10.4); MONOCYTES 5.3 % (2-11); NEUTROPHILS 56.4 % (40-80); RBC 4.63 10x6/uL (4.00-5.40); RDW 13.5 % (11.5-14.5); WBC 4.8 10x3/uL (4.8-10.8)
[2018-10-10 17:42] LABS: PLATELET COUNT 134 10x3/uL (130-400)
[2018-10-10 17:58] LABS: APPEARANCE CLEAR (CLEAR); BILIRUBIN NEGATIVE (NEGATIVE); COLOR YELLOW (YELLOW); GLUCOSE NEGATIVE (NEGATIVE); KETONE NEGATIVE (NEGATIVE); NITRITE NEGATIVE (NEGATIVE); PROTEIN NEGATIVE (NEGATIVE); SPECIFIC GRAVITY 1.015 (1.005-1.020); UROBILINOGEN NORMAL (NORMAL)
[2018-10-10 17:59] LABS: BACTERIA MANY /hpf (NONE SEEN); EPITHELIAL CELLS 0-5 /hpf (0-5); RED CELLS - URINE OCC /hpf (0-5); WHITE CELLS - URINE 0-5 /hpf (0-5)
[2018-10-10 18:01] LABS: ALKALINE PHOSPHATASE 74 U/L (46-116); ALT (SGPT) 19 U/L (10-68); BILIRUBIN - TOTAL 0.43 mg/dL (0.2-1.3); CALC OSMOLALITY 282 mosm/kg (275-300); CALCIUM 8.8 mg/dL (8.5-10.1); CARBON DIOXIDE 26.2 mmol/L (21.0-32.0); CHLORIDE - SERUM 106 mmol/L (98-107); CREATININE - SERUM 0.9 mg/dL (0.6-1.3); GLUCOSE 94 mg/dL (74-106); POTASSIUM - SERUM 4.3 mmol/L (3.5-5.1); PROTEIN - SERUM 7.8 g/dL (6.4-8.2); SODIUM 141 mmol/L (136-145); UREA NITROGEN 17 mg/dL (7-18); eGFR NON AFRICAN AMERICAN 76 mL/min (90-120)
[2018-10-10 18:03] LABS: AMYLASE - SERUM 72 U/L (25-115); LIPASE 125 U/L (73-393)
[2018-10-10 18:04] LABS: TROPONIN-I < 0.017 ng/mL (0.000-0.060)
[2018-10-10] MEDS ORDERED: MACROBID100 MG PO (19:58)
[2018-10-10 20:04] VITALS: BP 118/68
== END 2018-10-10 20:04 | disposition home or self-care (01) ==
LOC: D.ER 16:52
PROVIDERS: Family Medicine
DX: N39.0 Urinary tract infection, site not specified (principal)

== ENCOUNTER 2018-10-12 05:48 | Emergency (ER) | payer OTHER ==
[~2018-10-12] VITALS: Ht 149.9 cm; Wt 47.6 kg
[~2018-10-12 05:48] MED LIST changes: +ALBUTEROL SULF8.5 GM INH; +ZANAFLEX4 MG PO
[2018-10-12 05:49] VITALS: BP 116/63; Ht 149.9 cm; Wt 47.6 kg
[2018-10-12] MEDS ORDERED: TALWIN NX1 TAB PO (16:51)
== END 2018-10-12 07:25 | disposition left against medical advice (07) ==
LOC: D.ER 05:48
DX: R51 Headache (principal); T14.8XXA Other injury of unspecified body region, initial encounter; Y04.8XXA Assault by other bodily force, initial encounter; M79.601 Pain in right arm

== ENCOUNTER 2018-10-12 13:40 | Emergency (ER) | payer OTHER ==
[~2018-10-12] VITALS: Ht 149.9 cm; Wt 47.7 kg
[2018-10-12 14:12] VITALS: Ht 149.9 cm; Wt 47.7 kg
[2018-10-12] MEDS ORDERED: TALWIN NX1 TAB PO (16:51)
[2018-10-12 17:33] VITALS: BP 123/70
== END 2018-10-12 17:33 | disposition home or self-care (01) ==
LOC: D.ER 13:40
DX: R51 Headache (principal); Y04.2XXA Assault by strike against or bumped into by another person, initial encounter; Y93.89 Activity, other specified; Y92.89 Other specified places as the place of occurrence of the external cause

== ENCOUNTER 2018-10-13 21:15 | Emergency (ER) | payer OTHER ==
[~2018-10-13] VITALS: Ht 149.9 cm; Wt 47.7 kg
[2018-10-13 21:47] VITALS: BP 135/67; Ht 149.9 cm; Wt 47.7 kg
== END 2018-10-13 23:54 | disposition home or self-care (01) ==
LOC: D.ER 21:15
DX: R51 Headache (principal); M54.2 Cervicalgia; W19.XXXA Unspecified fall, initial encounter; Y93.89 Activity, other specified; Y92.89 Other specified places as the place of occurrence of the external cause

== ENCOUNTER 2018-11-06 19:20 | Emergency (ER) | payer OTHER ==
[~2018-11-06] VITALS: Ht 149.9 cm; Wt 50.8 kg
[2018-11-06 19:22] VITALS: Ht 149.9 cm; Wt 50.8 kg
[2018-11-06 20:12] LABS: HEMATOCRIT 34.1 % (36.0-48.0); HEMOGLOBIN 11.7 g/dL (12-16); MCH 30.1 pg (26.0-34.0); MCHC 34.3 g/dL (31.0-37.0); MCV 87.7 fL (80.0-100.0); MEAN PLATELET VOLUME 12.1 fL (7.4-10.4); RBC 3.89 10x6/uL (4.00-5.40); RDW 13.6 % (11.5-14.5)
[2018-11-06 20:12] LABS: APPEARANCE CLEAR (CLEAR); BILIRUBIN NEGATIVE (NEGATIVE); COLOR YELLOW (YELLOW); GLUCOSE NEGATIVE (NEGATIVE); KETONE NEGATIVE (NEGATIVE); NITRITE NEGATIVE (NEGATIVE); PROTEIN NEGATIVE (NEGATIVE); SPECIFIC GRAVITY 1.015 (1.005-1.020); UROBILINOGEN NORMAL (NORMAL)
[2018-11-06 20:29] LABS: CALC OSMOLALITY 286 mosm/kg (275-300); CALCIUM 8.4 mg/dL (8.5-10.1); CARBON DIOXIDE 24.1 mmol/L (21.0-32.0); CHLORIDE - SERUM 111 mmol/L (98-107); CREATININE - SERUM 0.9 mg/dL (0.6-1.3); GLUCOSE 75 mg/dL (74-106); SODIUM 143 mmol/L (136-145); UREA NITROGEN 20 mg/dL (7-18); eGFR NON AFRICAN AMERICAN 76 mL/min (90-120)
[2018-11-06 20:36] LABS: PLATELET COUNT 105 10x3/uL (130-400)
[2018-11-06] MEDS ORDERED: ZOFRAN ODT4 MG/UDTAB PO (20:42)
[2018-11-06] MEDS ORDERED: VOLTAREN75 MG PO (20:45)
--- NOTE | 2018-11-06 20:56 | NUR ---
DR GAUTAM NOTIFIED AND REVIEWED PT BEHAVIOR AND ASSESSMENT RESULTS. PT IS A LOW RISK PER DR GAUTAM. DR GAUTAM STATED TO GIVE RESOURCES TO PT AT TIME OF DISCHARGE. NO FURTHER ORDERS AT THIS TIME. RESOURCES REVIEWED WITH PT AND SHE VERBALIZED UNDERSTANDING.
[2018-11-06 21:28] LABS: EOSINOPHILS 3 % (0-7); LYMPHOCYTES 54 % (15-50); MONOCYTES 1 % (2-11); NEUTROPHILS 42 % (40-80); PLATELET ESTIMATE DECREASED
[2018-11-06 21:49] VITALS: BP 112/77
== END 2018-11-06 21:34 | disposition left against medical advice (07) ==
LOC: D.ER 19:20
PROVIDERS: Family Medicine
DX: R10.9 Unspecified abdominal pain (principal); R11.2 Nausea with vomiting, unspecified

== ENCOUNTER 2018-12-05 00:30 | Emergency (ER) | payer OTHER ==
[~2018-12-05] VITALS: Ht 149.9 cm; Wt 42.9 kg
[~2018-12-05 00:30] MED LIST changes: +VOLTAREN75 MG PO; +ZOFRAN ODT4 MG/UDTAB PO
[2018-12-05 00:34] VITALS: BP 108/78; Ht 149.9 cm; Wt 42.9 kg
[2018-12-05 01:19] LABS: BASOPHILS 0.2 % (0-2); EOSINOPHILS 0.2 % (0-7); HEMATOCRIT 38.8 % (36.0-48.0); HEMOGLOBIN 13.6 g/dL (12-16); IMMATURE GRANULOCYTES 0.2 % (0-5); LYMPHOCYTES 35.7 % (15-50); MCH 30.2 pg (26.0-34.0); MCHC 35.1 g/dL (31.0-37.0); MCV 86.2 fL (80.0-100.0); MEAN PLATELET VOLUME 11.5 fL (7.4-10.4); MONOCYTES 8.5 % (2-11); NEUTROPHILS 55.2 % (40-80); RDW 13.3 % (11.5-14.5); WBC 4.6 10x3/uL (4.8-10.8)
[2018-12-05 01:21] LABS: PLATELET COUNT 143 10x3/uL (130-400)
[2018-12-05 01:31] LABS: ALBUMIN 4.5 g/dL (3.4-5.0); ALKALINE PHOSPHATASE 84 U/L (46-116); ALT (SGPT) 31 U/L (10-68); BILIRUBIN - TOTAL 0.97 mg/dL (0.2-1.3); CALC OSMOLALITY 278 mosm/kg (275-300); CALCIUM 9.3 mg/dL (8.5-10.1); CHLORIDE - SERUM 100 mmol/L (98-107); CREATININE - SERUM 0.9 mg/dL (0.6-1.3); GLUCOSE 89 mg/dL (74-106); POTASSIUM - SERUM 3.5 mmol/L (3.5-5.1); PROTEIN - SERUM 8.8 g/dL (6.4-8.2); SODIUM 139 mmol/L (136-145); UREA NITROGEN 19 mg/dL (7-18); eGFR NON AFRICAN AMERICAN 76 mL/min (90-120)
[2018-12-05 01:40] LABS: AMYLASE - SERUM 49 U/L (25-115); LIPASE 67 U/L (73-393); TROPONIN-I < 0.017 ng/mL (0.000-0.060)
== END 2018-12-05 03:15 | disposition left against medical advice (07) ==
LOC: D.ER 00:30
PROVIDERS: Family Medicine
DX: R10.9 Unspecified abdominal pain (principal); F17.210 Nicotine dependence, cigarettes, uncomplicated; K21.9 Gastro-esophageal reflux disease without esophagitis; F32.9 Major depressive disorder, single episode, unspecified

== ENCOUNTER 2018-12-30 10:50 | Emergency (ER) | payer OTHER ==
[~2018-12-30] VITALS: Ht 149.9 cm; Wt 44.7 kg
[2018-12-30 10:54] VITALS: Ht 149.9 cm; Wt 44.7 kg
[2018-12-30 11:17] LABS: BASOPHILS 0.2 % (0-2); EOSINOPHILS 0.6 % (0-7); HEMATOCRIT 45.1 % (36.0-48.0); HEMOGLOBIN 15.2 g/dL (12-16); LYMPHOCYTES 37.5 % (15-50); MCH 31.1 pg (26.0-34.0); MCHC 33.7 g/dL (31.0-37.0); MCV 92.4 fL (80.0-100.0); MEAN PLATELET VOLUME 11.5 fL (7.4-10.4); MONOCYTES 6.9 % (2-11); NEUTROPHILS 54.8 % (40-80); RBC 4.88 10x6/uL (4.00-5.40); RDW 13.6 % (11.5-14.5); WBC 4.9 10x3/uL (4.8-10.8)
[2018-12-30 11:27] LABS: PLATELET COUNT 172 10x3/uL (130-400)
[2018-12-30 11:33] LABS: APPEARANCE CLEAR (CLEAR); BILIRUBIN NEGATIVE (NEGATIVE); COLOR YELLOW (YELLOW); GLUCOSE NEGATIVE (NEGATIVE); KETONE NEGATIVE (NEGATIVE); NITRITE NEGATIVE (NEGATIVE); PROTEIN NEGATIVE (NEGATIVE); SPECIFIC GRAVITY 1.015 (1.005-1.020); UROBILINOGEN NORMAL (NORMAL)
[2018-12-30 11:34] LABS: ALBUMIN 4.2 g/dL (3.4-5.0); ALKALINE PHOSPHATASE 78 U/L (46-116); ALT (SGPT) 57 U/L (10-68); BILIRUBIN - TOTAL 0.52 mg/dL (0.2-1.3); CALC OSMOLALITY 281 mosm/kg (275-300); CALCIUM 9.1 mg/dL (8.5-10.1); CARBON DIOXIDE 31.1 mmol/L (21.0-32.0); CHLORIDE - SERUM 106 mmol/L (98-107); CREATININE - SERUM 0.8 mg/dL (0.6-1.3); GLUCOSE 76 mg/dL (74-106); POTASSIUM - SERUM 4.7 mmol/L (3.5-5.1); PROTEIN - SERUM 8.5 g/dL (6.4-8.2); SODIUM 142 mmol/L (136-145); UREA NITROGEN 13 mg/dL (7-18); eGFR NON AFRICAN AMERICAN 87 mL/min (90-120)
[2018-12-30] MEDS ORDERED: PROTONIX40 MG PO (13:11)
[2018-12-30] MEDS ORDERED: VOLTAREN75 MG PO (13:12)
[2018-12-30 13:22] VITALS: BP 157/94
== END 2018-12-30 13:24 | disposition home or self-care (01) ==
LOC: D.ER 10:50
PROVIDERS: Emergency Medicine
DX: M54.5 Low back pain (principal); R30.0 Dysuria; F17.210 Nicotine dependence, cigarettes, uncomplicated

== ENCOUNTER 2019-01-01 11:04 | Emergency (ER) | payer OTHER ==
[~2019-01-01] VITALS: Ht 149.9 cm; Wt 44.5 kg
[~2019-01-01 11:04] MED LIST changes: +PROTONIX40 MG PO
[2019-01-01 11:10] VITALS: BP 114/76; Ht 149.9 cm; Wt 44.5 kg
[2019-01-01 11:45] LABS: APPEARANCE HAZY (CLEAR); BACTERIA MODERATE /hpf (NEGATIVE); BILIRUBIN NEGATIVE (NEGATIVE); COLOR STRAW (YELLOW); GLUCOSE NEGATIVE (NEGATIVE); KETONE NEGATIVE (NEGATIVE); MUCUS >1+ /lpf (NONE SEEN); NITRITE NEGATIVE (NEGATIVE); PROTEIN NEGATIVE (NEGATIVE); RED CELLS - URINE 0-5 /hpf (0-5); SPECIFIC GRAVITY 1.015 (1.005-1.020); UROBILINOGEN NORMAL (NORMAL)
[2019-01-01 11:46] LABS: AMORPHOUS SEDIMENT <1+ /lpf (NONE SEEN)
[2019-01-01 13:59] LABS: BASOPHILS 0 % (0-2); EOSINOPHILS 0.7 % (0-7); HEMATOCRIT 40.9 % (36.0-48.0); HEMOGLOBIN 13.7 g/dL (12-16); IMMATURE GRANULOCYTES 0.2 % (0-5); LYMPHOCYTES 45.1 % (15-50); MCH 30.7 pg (26.0-34.0); MCHC 33.5 g/dL (31.0-37.0); MCV 91.7 fL (80.0-100.0); MEAN PLATELET VOLUME 11.8 fL (7.4-10.4); MONOCYTES 8.9 % (2-11); NEUTROPHILS 45.1 % (40-80); PLATELET COUNT 157 10x3/uL (130-400); RBC 4.46 10x6/uL (4.00-5.40); RDW 13.3 % (11.5-14.5); WBC 4.3 10x3/uL (4.8-10.8)
[2019-01-01 14:07] LABS: UDS - AMPHET NEGATIVE QUAL (NEGATIVE); UDS - BARB NEGATIVE QUAL (NEGATIVE); UDS - BENZO POSITIVE QUAL (NEGATIVE); UDS - COCAINE NEGATIVE QUAL (NEGATIVE); UDS - OPIATE NEGATIVE QUAL (NEGATIVE); UDS - PCP NEGATIVE QUAL (NEGATIVE); UDS - THC POSITIVE QUAL (NEGATIVE)
[2019-01-01 14:12] LABS: ALBUMIN 4.6 g/dL (3.4-5.0); ALKALINE PHOSPHATASE 83 U/L (46-116); ALT (SGPT) 53 U/L (10-68); BILIRUBIN - TOTAL 0.48 mg/dL (0.2-1.3); CALC OSMOLALITY 285 mosm/kg (275-300); CALCIUM 9.4 mg/dL (8.5-10.1); CARBON DIOXIDE 32.2 mmol/L (21.0-32.0); CHLORIDE - SERUM 105 mmol/L (98-107); CREATININE - SERUM 0.7 mg/dL (0.6-1.3); GLUCOSE 84 mg/dL (74-106); POTASSIUM - SERUM 4.7 mmol/L (3.5-5.1); SODIUM 143 mmol/L (136-145); UREA NITROGEN 19 mg/dL (7-18); eGFR NON AFRICAN AMERICAN > 90 mL/min (90-120)
[2019-01-01 14:16] LABS: AMYLASE - SERUM 59 U/L (25-115); LIPASE 109 U/L (73-393); TROPONIN-I < 0.017 ng/mL (0.000-0.060)
== END 2019-01-01 15:17 | disposition home or self-care (01) ==
LOC: D.ER 11:04
PROVIDERS: Family Medicine
DX: R10.9 Unspecified abdominal pain (principal); F32.9 Major depressive disorder, single episode, unspecified; F17.210 Nicotine dependence, cigarettes, uncomplicated

== ENCOUNTER 2019-02-06 14:35 | Emergency (ER) | payer OTHER ==
[~2019-02-06] VITALS: Ht 149.9 cm; Wt 40.9 kg
[2019-02-06 14:44] VITALS: BP 103/72; Ht 149.9 cm; Wt 40.9 kg
[2019-02-06] MEDS ORDERED: LEVAQUIN750 MG PO (15:39)
[2019-02-06] MEDS ORDERED: FLAGYL500 MG PO (15:39)
[2019-02-06] MEDS ORDERED: TALWIN NX1 TAB PO (15:39)
== END 2019-02-06 16:33 | disposition home or self-care (01) ==
LOC: D.ER 14:35
DX: L02.91 Cutaneous abscess, unspecified (principal); S02.5XXA Fracture of tooth (traumatic), initial encounter for closed fracture

== ENCOUNTER 2019-03-29 14:31 | Emergency (ER) | payer OTHER ==
[~2019-03-29] VITALS: Ht 149.9 cm; Wt 52.3 kg
[~2019-03-29 14:31] MED LIST changes: +FLAGYL500 MG PO; +LEVAQUIN750 MG PO
[2019-03-29 14:36] VITALS: BP 124/71; Ht 149.9 cm; Wt 52.3 kg
[2019-03-29 15:13] LABS: BASOPHILS 0.5 % (0-2); HEMATOCRIT 40.5 % (36.0-48.0); LYMPHOCYTES 55.6 % (15-50); MCH 30.5 pg (26.0-34.0); MCHC 34.6 g/dL (31.0-37.0); MCV 88.2 fL (80.0-100.0); MONOCYTES 8.9 % (2-11); PLATELET COUNT 156 10x3/uL (130-400); RBC 4.59 10x6/uL (4.00-5.40); RDW 12.4 % (11.5-14.5); WBC 4.1 10x3/uL (4.8-10.8)
[2019-03-29 15:23] LABS: CALC OSMOLALITY 279 mosm/kg (275-300); CALCIUM 8.8 mg/dL (8.5-10.1); CARBON DIOXIDE 25.8 mmol/L (21.0-32.0); CHLORIDE - SERUM 105 mmol/L (98-107); CREATININE - SERUM 0.7 mg/dL (0.6-1.3); GLUCOSE 88 mg/dL (74-106); POTASSIUM - SERUM 4.2 mmol/L (3.5-5.1); SODIUM 140 mmol/L (136-145); UREA NITROGEN 17 mg/dL (7-18); eGFR NON AFRICAN AMERICAN > 90 mL/min (90-120)
[2019-03-29 15:29] LABS: ALKALINE PHOSPHATASE 77 U/L (46-116); ALT (SGPT) 23 U/L (10-68); MAGNESIUM - SERUM 2.2 mg/dL (1.8-2.4); PROTEIN - SERUM 7.3 g/dL (6.4-8.2)
[2019-03-29 15:55] LABS: UDS - AMPHET NEGATIVE QUAL (NEGATIVE); UDS - BARB NEGATIVE QUAL (NEGATIVE); UDS - BENZO POSITIVE QUAL (NEGATIVE); UDS - COCAINE NEGATIVE QUAL (NEGATIVE); UDS - OPIATE NEGATIVE QUAL (NEGATIVE); UDS - PCP NEGATIVE QUAL (NEGATIVE); UDS - THC POSITIVE QUAL (NEGATIVE)
[2019-03-29 16:08] LABS: APPEARANCE CLEAR (CLEAR); COLOR YELLOW (YELLOW); GLUCOSE NEGATIVE (NEGATIVE); KETONE NEGATIVE (NEGATIVE); NITRITE NEGATIVE (NEGATIVE); PROTEIN NEGATIVE (NEGATIVE); UROBILINOGEN NORMAL (NORMAL)
[2019-03-29 16:09] LABS: BILIRUBIN NEGATIVE (NEGATIVE)
[2019-03-29 16:10] LABS: BACTERIA FEW /hpf (NEGATIVE); EPITHELIAL CELLS 0-5 /hpf (0-5); RED CELLS - URINE 0-5 /hpf (0-5); WHITE CELLS - URINE 0-5 /hpf (NEGATIVE)
== END 2019-03-29 17:05 | disposition home or self-care (01) ==
LOC: D.ER 14:31
PROVIDERS: Family Medicine
DX: R56.9 Unspecified convulsions (principal)

== ENCOUNTER 2019-05-22 10:16 | Emergency (ER) | payer OTHER ==
[~2019-05-22] VITALS: Ht 149.9 cm; Wt 44.5 kg
[2019-05-22 10:31] VITALS: Ht 149.9 cm; Wt 44.5 kg
[2019-05-22 13:23] VITALS: BP 118/74
[2019-05-22] MEDS ORDERED: MACROBID100 MG PO (20:02)
== END 2019-05-22 13:24 | disposition home or self-care (01) ==
LOC: D.ER 10:16
DX: S49.91XA Unspecified injury of right shoulder and upper arm, initial encounter (principal); Y04.8XXA Assault by other bodily force, initial encounter; Y93.9 Activity, unspecified; Y92.9 Unspecified place or not applicable; R51 Headache; J44.9 Chronic obstructive pulmonary disease, unspecified; Z72.0 Tobacco use

== ENCOUNTER 2019-05-22 17:24 | Emergency (ER) | payer OTHER ==
[~2019-05-22] VITALS: Ht 149.9 cm; Wt 44.5 kg
[2019-05-22 17:30] VITALS: BP 108/82; Ht 149.9 cm; Wt 44.5 kg
[2019-05-22 18:34] LABS: BASOPHILS 0.1 % (0-2); EOSINOPHILS 0.7 % (0-7); HEMATOCRIT 50.2 % (36.0-48.0); HEMOGLOBIN 17.5 g/dL (12-16); MCH 31.8 pg (26.0-34.0); MCHC 34.9 g/dL (31.0-37.0); MCV 91.3 fL (80.0-100.0); MEAN PLATELET VOLUME 11.3 fL (7.4-10.4); MONOCYTES 5.2 % (2-11); PLATELET COUNT 207 10x3/uL (130-400); RDW 13.8 % (11.5-14.5); WBC 6.9 10x3/uL (4.8-10.8)
[2019-05-22 19:31] LABS: CALC OSMOLALITY 276 mosm/kg (275-300); CALCIUM 10.4 mg/dL (8.5-10.1); CARBON DIOXIDE 25.7 mmol/L (21.0-32.0); CHLORIDE - SERUM 98 mmol/L (98-107); CREATININE - SERUM 0.8 mg/dL (0.6-1.3); GLUCOSE 87 mg/dL (74-106); POTASSIUM - SERUM 3.9 mmol/L (3.5-5.1); SODIUM 139 mmol/L (136-145); UREA NITROGEN 13 mg/dL (7-18); eGFR NON AFRICAN AMERICAN 87 mL/min (90-120)
[2019-05-22 19:37] LABS: ALKALINE PHOSPHATASE 92 U/L (30-120); ALT (SGPT) 53 U/L (10-68); BILIRUBIN - TOTAL 1.24 mg/dL (0.2-1.3); MAGNESIUM - SERUM 2.4 mg/dL (1.8-2.4); PROTEIN - SERUM 10.3 g/dL (6.4-8.2)
[2019-05-22 19:57] LABS: BILIRUBIN NEGATIVE (NEGATIVE); GLUCOSE NEGATIVE (NEGATIVE); KETONE NEGATIVE (NEGATIVE); NITRITE NEGATIVE (NEGATIVE); UROBILINOGEN NORMAL (NORMAL)
[2019-05-22 19:58] LABS: BACTERIA MODERATE /hpf (NEGATIVE); EPITHELIAL CELLS 0-5 /hpf (0-5); RED CELLS - URINE 0-5 /hpf (0-5); WHITE CELLS - URINE 0-5 /hpf (NEGATIVE)
[2019-05-22 19:59] LABS: HYALINE CAST 0-5 /lpf (NONE SEEN)
[2019-05-22 20:02] LABS: UDS - AMPHET POSITIVE QUAL (NEGATIVE); UDS - BARB POSITIVE QUAL (NEGATIVE); UDS - BENZO POSITIVE QUAL (NEGATIVE); UDS - COCAINE NEGATIVE QUAL (NEGATIVE); UDS - OPIATE NEGATIVE QUAL (NEGATIVE); UDS - PCP NEGATIVE QUAL (NEGATIVE); UDS - THC POSITIVE QUAL (NEGATIVE)
[2019-05-22] MEDS ORDERED: MACROBID100 MG PO (20:02)
== END 2019-05-22 20:14 | disposition home or self-care (01) ==
LOC: D.ER 17:24
PROVIDERS: Emergency Medicine
DX: F32.9 Major depressive disorder, single episode, unspecified (principal); N39.0 Urinary tract infection, site not specified; J44.9 Chronic obstructive pulmonary disease, unspecified; Z72.0 Tobacco use

== ENCOUNTER 2019-06-11 11:42 | Emergency (ER) | payer OTHER ==
[~2019-06-11] VITALS: Ht 149.9 cm; Wt 45.5 kg
[2019-06-11 12:03] VITALS: Ht 149.9 cm; Wt 45.5 kg
[2019-06-11] MEDS ORDERED: ZPAK PO (14:22)
[2019-06-11 15:16] VITALS: BP 124/63
== END 2019-06-11 15:17 | disposition home or self-care (01) ==
LOC: D.ER 11:42
DX: J02.0 Streptococcal pharyngitis (principal); J44.9 Chronic obstructive pulmonary disease, unspecified; Z72.0 Tobacco use; R05 Cough

== ENCOUNTER 2019-06-15 20:43 | Emergency (ER) | payer OTHER ==
[~2019-06-15] VITALS: Ht 149.9 cm; Wt 45.5 kg
[~2019-06-15 20:43] MED LIST changes: +ZPAK PO
[2019-06-15 20:50] VITALS: Ht 149.9 cm; Wt 45.5 kg
[2019-06-15 21:33] LABS: BASOPHILS 0.1 % (0-2); EOSINOPHILS 0.5 % (0-7); HEMATOCRIT 42.1 % (36.0-48.0); HEMOGLOBIN 14.3 g/dL (12-16); IMMATURE GRANULOCYTES 0.2 % (0-5); LYMPHOCYTES 17.2 % (15-50); MCH 31.6 pg (26.0-34.0); MCV 92.9 fL (80.0-100.0); MEAN PLATELET VOLUME 11.3 fL (7.4-10.4); MONOCYTES 5.1 % (2-11); NEUTROPHILS 76.9 % (40-80); PLATELET COUNT 228 10x3/uL (130-400); RBC 4.53 10x6/uL (4.00-5.40); RDW 14.1 % (11.5-14.5)
[2019-06-15 21:46] LABS: CALC OSMOLALITY 277 mosm/kg (275-300); CALCIUM 9.3 mg/dL (8.5-10.1); CARBON DIOXIDE 24.7 mmol/L (21.0-32.0); CHLORIDE - SERUM 104 mmol/L (98-107); CREATININE - SERUM 0.8 mg/dL (0.6-1.3); GLUCOSE 96 mg/dL (74-106); POTASSIUM - SERUM 4.4 mmol/L (3.5-5.1); SODIUM 138 mmol/L (136-145); UREA NITROGEN 17 mg/dL (7-18); eGFR NON AFRICAN AMERICAN 87 mL/min (90-120)
[2019-06-15 22:01] LABS: ALBUMIN 4.2 g/dL (3.4-5.0); ALKALINE PHOSPHATASE 60 U/L (30-120); ALT (SGPT) 23 U/L (10-68); BILIRUBIN - TOTAL 0.33 mg/dL (0.2-1.3); CREATINE KINASE 51 UL (21-215); FERRITIN 29 ng/mL (3-244)
[2019-06-15 22:02] LABS: C-REACTIVE PROTEIN < 0.2 mg/dL (0.0-0.9); TROPONIN-I < 0.017 ng/mL (0.000-0.060)
[2019-06-15] MEDS ORDERED: TYLENOL ARTHRI650 MG PO (22:18)
[2019-06-15 22:40] VITALS: BP 128/87
== END 2019-06-15 22:40 | disposition home or self-care (01) ==
LOC: D.ER 20:43
PROVIDERS: Family Medicine
DX: J02.9 Acute pharyngitis, unspecified (principal); F41.9 Anxiety disorder, unspecified; B34.9 Viral infection, unspecified; J44.9 Chronic obstructive pulmonary disease, unspecified; R06.02 Shortness of breath

== ENCOUNTER 2019-10-06 21:21 | Emergency (ER) | payer OTHER ==
[~2019-10-06] VITALS: Ht 149.9 cm; Wt 46.8 kg
[~2019-10-06 21:21] MED LIST changes: +TYLENOL ARTHRI650 MG PO
[2019-10-06 21:44] VITALS: Ht 149.9 cm; Wt 46.8 kg
[2019-10-06] MEDS ORDERED: [UNRECOGNIZED DRUG - CODE] PO (21:52)
[2019-10-06 21:58] VITALS: BP 136/80
[2019-10-07] MEDS ORDERED: ORAL ANALGESIC9 GM TOPICAL (19:21)
== END 2019-10-06 21:58 | disposition home or self-care (01) ==
LOC: D.ER 21:21
DX: K08.89 Other specified disorders of teeth and supporting structures (principal); J45.909 Unspecified asthma, uncomplicated; Z72.0 Tobacco use

== ENCOUNTER 2019-10-07 17:23 | Emergency (ER) | payer OTHER ==
[~2019-10-07] VITALS: Ht 149.9 cm; Wt 47.3 kg
[~2019-10-07 17:23] MED LIST changes: +[UNRECOGNIZED DRUG - CODE] PO
[2019-10-07 17:29] VITALS: Ht 149.9 cm; Wt 47.3 kg
[2019-10-07] MEDS ORDERED: ORAL ANALGESIC9 GM TOPICAL (19:21)
[2019-10-07 19:44] VITALS: BP 106/78
== END 2019-10-07 19:44 | disposition home or self-care (01) ==
LOC: D.ER 17:23
DX: K08.89 Other specified disorders of teeth and supporting structures (principal); K02.9 Dental caries, unspecified; J45.909 Unspecified asthma, uncomplicated; Z72.0 Tobacco use

== ENCOUNTER 2020-07-21 11:45 | Emergency (ER) | payer OTHER ==
[~2020-07-21] VITALS: Ht 149.9 cm; Wt 50.0 kg
[~2020-07-21 11:45] MED LIST changes: +ORAL ANALGESIC9 GM TOPICAL
[2020-07-21 11:48] VITALS: BP 123/87; Ht 149.9 cm; Wt 50.0 kg
[2020-07-21] MEDS ORDERED: HYDROCODON-ACE1 EAC7 PO (11:59)
[2020-07-21] MEDS ORDERED: CLEOCIN HCL150 MG PO (12:01)
== END 2020-07-21 12:15 | disposition home or self-care (01) ==
LOC: D.ER 11:45
DX: K08.89 Other specified disorders of teeth and supporting structures (principal); K02.9 Dental caries, unspecified; J45.909 Unspecified asthma, uncomplicated

== ENCOUNTER 2020-08-14 11:52 | Emergency (ER) | payer OTHER ==
[~2020-08-14] VITALS: Ht 149.9 cm; Wt 54.5 kg
[~2020-08-14 11:52] MED LIST changes: +CLEOCIN HCL150 MG PO; +HYDROCODON-ACE1 EAC7 PO
[2020-08-14 12:02] VITALS: BP 100/73; Ht 149.9 cm; Wt 54.5 kg
[2020-08-14] MEDS ORDERED: CLEOCIN HCL150 MG PO (12:41)
[2020-08-14] MEDS ORDERED: HYDROCODON-ACE1 EAC7 PO (12:41)
== END 2020-08-14 13:39 | disposition home or self-care (01) ==
LOC: D.ER 11:52
DX: K08.89 Other specified disorders of teeth and supporting structures (principal); J45.909 Unspecified asthma, uncomplicated; Z72.0 Tobacco use